=== PATIENT | male | born 1960 | race African-American/Black ===

== ENCOUNTER → 2020-07-25 | Outpatient (CLI) | payer BC ==
[~2020-07-25] MED LIST: LEVOTHYROXINE0.05 MG; TRAMADOL 50 MG50 MG PO
== END ==
LOC: LAB 07:46
PROVIDERS: ATTEND Anesthesiology
DX: Z01.818 Encounter for other preprocedural examination (principal); Z20.822 Contact with and (suspected) exposure to COVID-19